=== PATIENT | female | born 1930 | race Caucasian/White ===

== ENCOUNTER → 2017-06-07 | Outpatient (CLI) | payer MEDICARE, MEDICAID ==
[~2017-06-07] VITALS: Ht 148.6 cm; Wt 63.0 kg
[~2017-06-07] MED LIST: AMLO-511 PO; ASPI81TA2 PO; PRAV20TA4 PO
[2017-06-07 09:53] VITALS: BP 124/56
== END | disposition home or self-care (01) ==
LOC: SRCNTR 09:30
PROVIDERS: ATTEND Internal Medicine Clinical Cardiac Electrophysiology
DX: Z45.018 Encounter for adjustment and management of other part of cardiac pacemaker (principal); I10 Essential (primary) hypertension; E78.5 Hyperlipidemia, unspecified; E78.00 Pure hypercholesterolemia, unspecified; Z79.82 Long term (current) use of aspirin
CPT/HCPCS: G0463

== ENCOUNTER → 2017-12-13 | Outpatient (CLI) | payer MEDICARE, MEDICAID ==
[~2017-12-13] VITALS: Ht 147.3 cm; Wt 58.5 kg
[~2017-12-13] MED LIST changes: -ASPI81TA2 PO; +ASPI81TA39 PO
[2017-12-13 10:09] VITALS: BP 151/68
== END | disposition home or self-care (01) ==
LOC: SRCNTR 10:08
PROVIDERS: ATTEND Internal Medicine Clinical Cardiac Electrophysiology
DX: Z45.018 Encounter for adjustment and management of other part of cardiac pacemaker (principal); I10 Essential (primary) hypertension; E78.00 Pure hypercholesterolemia, unspecified; Z79.82 Long term (current) use of aspirin
CPT/HCPCS: G0463

== ENCOUNTER → 2018-06-16 | Outpatient (CLI) | payer MEDICARE, MEDICAID ==
[~2018-06-16] VITALS: Ht 137.2 cm; Wt 61.5 kg
[2018-06-16 10:04] VITALS: BP 141/62
== END | disposition home or self-care (01) ==
LOC: SRCNTR 09:50
PROVIDERS: ATTEND Internal Medicine Clinical Cardiac Electrophysiology
DX: Z45.018 Encounter for adjustment and management of other part of cardiac pacemaker (principal); I10 Essential (primary) hypertension; E78.00 Pure hypercholesterolemia, unspecified
CPT/HCPCS: G0463

== ENCOUNTER → 2018-12-19 | Outpatient (CLI) | payer MEDICARE, MEDICAID ==
[~2018-12-19] VITALS: Ht 137.2 cm; Wt 61.0 kg
[2018-12-19 10:31] VITALS: BP 145/63
== END | disposition home or self-care (01) ==
LOC: SRCNTR 10:03
PROVIDERS: ATTEND Internal Medicine Clinical Cardiac Electrophysiology
DX: I10 Essential (primary) hypertension (principal); E78.00 Pure hypercholesterolemia, unspecified
CPT/HCPCS: G0463

== ENCOUNTER → 2019-12-11 | Outpatient (CLI) | payer MEDICARE, MEDICAID ==
[~2019-12-11] VITALS: Ht 147.3 cm; Wt 60.0 kg
[~2019-12-11] MED LIST changes: -AMLO-511 PO; +AMLO5TAB9 PO
[2019-12-11 10:35] VITALS: BP 128/59
== END | disposition home or self-care (01) ==
LOC: SRCNTR 10:34
PROVIDERS: ATTEND Internal Medicine Clinical Cardiac Electrophysiology
DX: Z45.018 Encounter for adjustment and management of other part of cardiac pacemaker (principal); I49.9 Cardiac arrhythmia, unspecified; E78.00 Pure hypercholesterolemia, unspecified; I10 Essential (primary) hypertension
CPT/HCPCS: G0463

== ENCOUNTER → 2020-06-10 | Outpatient (CLI) | payer MEDICARE, MEDICAID ==
[~2020-06-10] VITALS: Ht 147.3 cm; Wt 59.0 kg
[~2020-06-10] MED LIST changes: +AMLO-257 PO; -AMLO5TAB9 PO
[2020-06-10 11:23] VITALS: BP 150/60
== END | disposition home or self-care (01) ==
LOC: SRCNTR 11:07
PROVIDERS: ATTEND Internal Medicine Clinical Cardiac Electrophysiology
DX: Z45.018 Encounter for adjustment and management of other part of cardiac pacemaker (principal)
CPT/HCPCS: G0463